=== PATIENT | female | born 1960 | race Hispanic/Latino ===

== ENCOUNTER 2018-08-21 13:13 | Emergency (ER) | payer OTHER ==
--- NOTE | 2018-08-21 15:22 | RAD REPORT ---
EXAM DESCRIPTION: Edwin Single View08/21/2018 3:13 pm CLINICAL HISTORY: Chest pain COMPARISON: none FINDINGS: Both lung bases are hazy. Upper lobes appear clear. The heart is normal size IMPRESSION: Both lung bases are hazy probably secondary to overlying soft tissue. As infiltrates can have this appearance PA and lateral chest series recommended
[2018-08-21 15:30] LABS: Absolute Monocytes 0.7 K/uL (0.1-1.3); Absolute Neutrophil 8.3 K/uL (1.8-8.0); Basophils % 0.8 % (0-1.3); Eosinophils % 1.3 % (0-4.4); Hematocrit 43.9 % (36.0-45.0); MPV 8.5 fL (7.6-11.3); Monocytes % 6.1 % (3.3-12.3)
[2018-08-21 15:35] LABS: Protime INR 1.11
[2018-08-21 15:49] LABS: ALT/SGPT 25 U/L (12-78); AST/SGOT 14 U/L (15-37); Albumin 3.7 g/dL (3.4-5.0); Alkaline Phosphatase 94 U/L (45-117); BUN Blood Urea Nitrogen 11 mg/dL (7-18); Bicarbonate 25 mmol/L (21-32); Bilirubin Total 0.2 mg/dL (0.2-1.0); Glucose Level 89 mg/dL (74-106); Lipase 145 U/L (73-393); NT PRO-BNP 69 pg/mL (<125); Potassium 3.8 mmol/L (3.5-5.1); Protein, Total 8.4 g/dL (6.4-8.2); Sodium Level 142 mmol/L (136-145); Troponin (Emerg Dept Use Only) < 0.02 ng/mL (0.0-0.045)
[2018-08-21 16:30] LABS: Urine Blood 2+ (NEG); Urine Glucose NEGATIVE (NEG); Urine Protein NEGATIVE (NEG); Urine pH 5.5 (5.0-7.0)
--- NOTE | 2018-08-21 17:15 | EKG ---
Test Date: 2018-08-21 Test Time: 13:42:24 Jewelry Department Supervisor: YADIRA MEASUREMENT RESULTS: Intervals: Rate: 93 CA: 118 QRSD: 78 QT: 342 QTc: 425 [place]: P: 51 CA: 118 QRS: 74 T: 50 INTERPRETIVE STATEMENTS: Normal sinus rhythm ST abnormality, possible digitalis effect Abnormal ECG No previous ECG available for comparison Electronically Signed On 08-21-18 17:13:40 CDT by Felix Shannon
--- NOTE | 2018-08-21 17:40 | RAD REPORT ---
EXAM DESCRIPTION: CT - Abdomen Pelvis W Contrast - 08/21/2018 5:15 pm CLINICAL HISTORY: Abdominal pain/right lower quadrant pain COMPARISON: none. TECHNIQUE: Computed axial tomography of the abdomen pelvis was obtained. 100 cc Isovue-300 was admin istered intravenously. Oral contrast was not requested which limits evaluation of bowel. All CT scans are performed using dose optimization technique as appropriate and may include automated exposure control or mA/KV adjustment according to patient size. FINDINGS: The liver, spleen, pancreas, adrenal and kidneys appear unremarkable. The appendix is normal. Diverticula stem from the colon. Mild to moderate stranding is present adjacent to the sigmoid colon. Sigmoid wall is thickened IMPRESSION: These findings most likely represent mild to moderate sigmoid diverticulitis
--- NOTE | 2018-08-21 18:03 | ER ---
Nurse's Notes [facility] Name: Netta Camargo Age: 58 yrs Sex: Female : 1960 Arrival Date: 08/21/2018 Time: 13:14 Bed 24 Private MD: Diagnosis: Sigmoid diverticulitis Presentation: 08/21 13:34 Presenting complaint: Patient states: 3 weeks ago, i started feeling pain in my abdomen hj (suprapubic area that radiates to the lower back); reports nausea, and occasional vomiting; denies diarrhea and constipation; reports on and off fever; reports chest pain;. Transition of care: patient was not received from another setting of care. Onset of symptoms was August 21, 2018. Risk Assessment: Do you want to hurt yourself or someone else? Patient reports no desire to harm self or others. Initial Sepsis Screen: Does the patient meet any 2 criteria? No. Patient's initial sepsis screen is negative. Does the patient have a suspected source of infection? No. Patient's initial sepsis screen is negative. Care prior to arrival: None. 13:34 Method Of Arrival: Ambulatory 13:34 Acuity: RACHID 3 hj Triage Assessment: 13:37 General: Appears in no apparent distress. uncomfortable, Behavior is cooperative, hj appropriate for age, anxious. Pain: Complains of pain in abdomen. Musculoskeletal: Circulation, motion, and sensation intact. Historical: - Allergies: 13:37 No Known Allergies; hj - Home Meds: 13:37 None [Active]; hj - PMHx: 13:37 None; hj - PSHx: 13:37 Knee surgery; ; hj - Immunization history:: Adult Immunizations not up to date. - Social history:: Smoking status: Patient uses tobacco products, Patient/guardian denies using alcohol. - Ebola Screening: : Patient negative for fever greater than or equal to 101.5 degrees Fahrenheit, and additional compatible Ebola Virus Disease symptoms Patient denies exposure to infectious person Patient denies travel to an Ebola-affected area in the 21 days before illness onset. Screenin:38 Abuse screen: Denies threats or abuse. Denies injuries from another. Nutritional hj screening: No deficits noted. Tuberculosis screening: No symptoms or risk factors identified. Fall Risk None identified. Assessment: 15:30 General: Appears in no apparent distress. comfortable, Behavior is calm, cooperative, aj1 appropriate for age. Pain: Complains of pain in suprapubic area Pain radiates to low back area. Neuro: Level of Consciousness is awake, alert, obeys commands, Oriented to person, place, time, situation. Cardiovascular: Reports chest pain, when her suprapubic pain becomes severe Patient's skin is warm and dry. Rhythm is sinus rhythm. Respiratory: Airway is patent Respiratory effort is even, unlabored, Respiratory pattern is regular, symmetrical. GI: Abdomen is non-distended. : No signs and/or symptoms were reported regarding the genitourinary system. EENT: No signs and/or symptoms were reported regarding the EENT system. Derm: No signs and/or symptoms reported regarding the dermatologic system. Skin is pink, warm \T\ dry. normal. Musculoskeletal: No signs and/or symptoms reported regarding the musculoskeletal system. Circulation, motion, and sensation intact. 16:36 Reassessment: Patient appears in no apparent distress at this time. No changes from aj1 previously documented assessment. Patient and/or family updated on plan of care and expected duration. Pain level reassessed. Patient is alert, oriented x 3, equal unlabored respirations, skin warm/dry/pink. 17:30 Reassessment: Patient appears in no apparent distress at this time. No changes from aj1 previously documented assessment. Patient and/or family updated on plan of care and expected duration. Pain level reassessed. Patient is alert, oriented x 3, equal unlabored respirations, skin warm/dry/pink. 18:30 Reassessment: Patient appears in no apparent distress at this time. No changes from aj1 previously documented assessment. Patient and/or family updated on plan of care and expected duration. Pain level reassessed. Patient is alert, oriented x 3, equal unlabored respirations, skin warm/dry/pink. Vital Signs: 13:38 BP 175 / 88; Pulse 96; Resp 18; Temp 97.2(O); Pulse Ox 100% on R/A; Weight 81.65 kg; hj Height 5 ft. 5 in. (165.10 cm); Pain 7/10; 15:59 BP 132 / 69; Pulse 87; Resp 18; Pulse Ox 99% on R/A; mg2 18:49 BP 135 / 75; Pulse 88; Resp 18; Pulse Ox 99% on R/A; aj1 13:38 Body Mass Index 29.95 (81.65 kg, 165.10 cm) ED Course: 13:14 Patient arrived in ED. rg4 13:37 Triage completed. hj 13:38 Arm band placed on left wrist. hj 13:38 Patient has correct armband on for positive identification. Placed in gown. Bed in low hj position. Call light in reach. Side rails up X 1. Adult w/ patient. 13:53 EKG done, by database technician. reviewed by Hubert Hightower MD. at1 14:52 Alex Torres MD is Attending Physician. ps1 14:53 Bridgett Eubanks, RN is Primary Nurse. aj1 15:11 XRAY Chest (1 view) In Process Unspecified. EDMS 15:25 No provider procedures requiring assistance completed. Inserted saline lock: 22 gauge mg2 in right antecubital area, using aseptic technique. Blood collected. 17:15 CT Abd/Pelvis - W/Contrast In Process Unspecified. EDMS 18:48 IV discontinued, intact, bleeding controlled, No redness/swelling at site. Pressure aj1 dressing applied. Administered Medications: 18:47 Drug: morphine 4 mg Route: IVP; Site: right antecubital; aj1 18:47 Follow up: Response: No adverse reaction aj1 18:47 Drug: Zofran 4 mg Route: IVP; Site: right antecubital; aj1 18:48 Follow up: Response: No adverse reaction aj1 Outcome: 18:01 Discharge ordered by MD. ps1 18:49 Patient left the ED. aj1 Signatures: Dispatcher [employer] EDMS Bridgett Eubanks, RN RN aj1 Mera Short, turn machine operator EKG Tat1 Peter Galan RN RN hj Garcia, Rubi rg4 Alex Torres MD MD ps1 Sandeep Vega RN RN mg2 Corrections: (The following items were deleted from the chart) 13:41 13:34 Presenting complaint: Patient states: 3 weeks ago, i started feeling pain in my hj abdomen; reports nausea, and occasional vomiting; denies diarrhea and constipation; reports on and off fever; reports chest pain; hj 13:41 13:38 Pulse 96bpm; Resp 18bpm; Pulse Ox 100% RA; Temp 97.2F Oral; 81.65 kg; Height 5 hj ft. 5 in.; BMI: 29.9; Pain 7/10; hj
--- NOTE | 2018-08-21 18:03 | EDPHYS ---
Physician Documentation [facility] Name: Netta Camargo Age: 58 yrs Sex: Female : 1960 Arrival Date: 08/21/2018 Time: 13:14 Bed 24 Private MD: ED Physician Alex Torres HPI: 08/21 17:54 This 58 yrs old Female presents to ER via Ambulatory with complaints of Back ps1 Pain, Chest Pain, Abdominal Pain. 17:54 patient states that she has RLQ abdominal . ps1 Historical: - Allergies: 13:37 No Known Allergies; hj - Home Meds: 13:37 None [Active]; hj - PMHx: 13:37 None; hj - PSHx: 13:37 Knee surgery; ; hj - Immunization history:: Adult Immunizations not up to date. - Social history:: Smoking status: Patient uses tobacco products, Patient/guardian denies using alcohol. - Ebola Screening: : Patient negative for fever greater than or equal to 101.5 degrees Fahrenheit, and additional compatible Ebola Virus Disease symptoms Patient denies exposure to infectious person Patient denies travel to an Ebola-affected area in the 21 days before illness onset. Vital Signs: 13:38 BP 175 / 88; Pulse 96; Resp 18; Temp 97.2(O); Pulse Ox 100% on R/A; Weight 81.65 kg; hj Height 5 ft. 5 in. (165.10 cm); Pain 7/10; 15:59 BP 132 / 69; Pulse 87; Resp 18; Pulse Ox 99% on R/A; mg2 18:49 BP 135 / 75; Pulse 88; Resp 18; Pulse Ox 99% on R/A; aj1 13:38 Body Mass Index 29.95 (81.65 kg, 165.10 cm) hj MDM: 14:55 Patient medically screened. ps1 08/21 14:54 Order name: CBC with Diff ps1 08/21 14:54 Order name: Magnesium; Complete Time: 16:16 ps1 08/21 14:54 Order name: NT PRO-BNP; Complete Time: 16:16 ps1 08/21 14:54 Order name: PT-INR; Complete Time: 16:16 ps1 08/21 14:54 Order name: Troponin (emerg Dept Use Only); Complete Time: 16:16 ps1 08/21 14:54 Order name: CMP; Complete Time: 16:16 ps1 08/21 13:41 Order name: EKG; Complete Time: 13:42 hj 08/21 14:54 Order name: XRAY Chest (1 view); Complete Time: 16:16 ps1 08/21 14:54 Order name: Lipase; Complete Time: 16:16 ps1 08/21 14:55 Order name: CBC with Automated Diff; Complete Time: 16:16 EDMS 08/21 15:26 Order name: Urine Dipstick--Ancillary (enter results); Complete Time: 16:33 bd 08/21 16:44 Order name: CT Abd/Pelvis - W/Contrast; Complete Time: 17:44 ps1 08/21 14:54 Order name: EKG; Complete Time: 14:55 ps1 08/21 14:54 Order name: Cardiac monitoring; Complete Time: 15:25 ps1 08/21 14:54 Order name: EKG - Nurse/Tech; Complete Time: 15:07 ps1 08/21 14:54 Order name: IV Saline Lock; Complete Time: 15:25 ps1 08/21 14:54 Order name: Labs collected and sent; Complete Time: 15:25 ps1 08/21 14:54 Order name: O2 Per Protocol; Complete Time: 15:25 ps1 08/21 14:54 Order name: O2 Sat Monitoring; Complete Time: 15:25 ps1 08/21 14:54 Order name: Urine Dipstick-Ancillary (obtain specimen); Complete Time: 15:07 ps1 Administered Medications: 18:47 Drug: morphine 4 mg Route: IVP; Site: right antecubital; aj1 18:47 Follow up: Response: No adverse reaction aj1 18:47 Drug: Zofran 4 mg Route: IVP; Site: right antecubital; aj1 18:48 Follow up: Response: No adverse reaction aj1 Disposition: 08/21/18 18:01 Discharged to Home. Impression: Sigmoid diverticulitis. - Condition is Stable. - Discharge Instructions: Diverticulitis. - Prescriptions for Cipro 500 mg Oral Tablet - take 1 tablet by ORAL route every 12 hours for 10 days; 20 tablet. Flagyl 500 mg Oral Tablet - take 1 tablet by ORAL route every 6 hours for 10 days; 40 tablet. Tylenol- Codeine #3 300-30 mg Oral Tablet - take 2 tablet by ORAL route every 6 hours As needed; 30 tablet. Zofran 4 mg Oral Tablet - take 1 tablet by ORAL route every 12 hours As needed; 20 tablet. - Medication Reconciliation Form, Thank You Letter, Antibiotic Education, Prescription Opioid Use form. - Follow up: Private Physician; When: 48 Hours; Reason: Recheck today's complaints. Follow up: Emergency Department; When: As needed; Reason: Fever > 102 F, If symptoms return, Worsening of condition. - Problem is new. - Symptoms are unchanged. Signatures: Dispatcher [employer] EDBridgett Marcelo RN RN aj1 Peter Galan RN RN hj Alex Torres MD MD ps1 Corrections: (The following items were deleted from the chart) 18:49 18:01 08/21/2018 18:01 Discharged to Home. Impression: Sigmoid diverticulitis. aj1 Condition is Stable. Forms are Medication Reconciliation Form, Thank You Letter, Antibiotic Education, Prescription Opioid Use. Follow up: Private Physician; When: 48 Hours; Reason: Recheck today's complaints. Follow up: Emergency Department; When: As needed; Reason: Fever > 102 F, If symptoms return, Worsening of condition. Problem is new. Symptoms are unchanged. ps1
[2018-08-21] MEDS ORDERED: MORPHINE 4 MG/ML SYR ONE (18:46)
[2018-08-21] MEDS ORDERED: ONDANSETRON 4 MG/2 ML VIAL ONE (18:46)
== END 2018-08-21 18:49 | disposition home or self-care (01) ==
LOC: ER 13:13
DX: K57.32 Diverticulitis of large intestine without perforation or abscess without bleeding (principal); Z72.0 Tobacco use
CPT/HCPCS: 36415; 71045; 74177; 80053; 81003; 83690; 83735; 83880; 84484; 85025; 85610; 93005; 96374; 96375; 99284; J2405; Q9967

== ENCOUNTER 2019-03-03 09:38 | Emergency (ER) | payer OTHER ==
[2019-03-03] MEDS ORDERED: KETOROLAC 30 MG/ML INJ ONE (10:41)
[2019-03-03] MEDS ORDERED: dexAMETHasone 10 MG/ML VIAL ONE (10:41)
--- NOTE | 2019-03-03 11:40 | ER ---
Nurse's Notes [facility] Name: Netta Camargo Age: 58 yrs Sex: Female : 1960 Arrival Date: 03/03/2019 Time: 09:46 Bed 8 Private MD: Diagnosis: Pain in left shoulder;Myalgia Presentation: 03/03 09:54 Presenting complaint: Left arm pain that radiates to left upper back and left side of hb neck x 1 week. Transition of care: patient was not received from another setting of care. 09:54 Method Of Arrival: Ambulatory hb 09:55 Onset of symptoms was February 24, 2019. Risk Assessment: Do you want to hurt yourself hb or someone else? Patient reports no desire to harm self or others. Initial Sepsis Screen: Does the patient meet any 2 criteria? No. Patient's initial sepsis screen is negative. Does the patient have a suspected source of infection? No. Patient's initial sepsis screen is negative. Care prior to arrival: None. 09:55 Acuity: RACHID 4 hb Historical: - Allergies: 09:56 No Known Allergies; hb - PSHx: 09:56 Knee surgery; ; hb - Immunization history:: Adult Immunizations up to date. - Social history:: Smoking status: Patient uses tobacco products, smokes one pack cigarettes per day. - Ebola Screening: : No symptoms or risks identified at this time. Screenin:57 Abuse screen: Denies threats or abuse. Denies injuries from another. Nutritional hb screening: No deficits noted. Tuberculosis screening: No symptoms or risk factors identified. Fall Risk None identified. Assessment: 09:50 General: Appears in no apparent distress. uncomfortable, well groomed, Behavior is ae4 calm, cooperative. Pain: Complains of pain in left arm Pain radiates to left posterior aspect of neck and left lateral aspect of neck Pain currently is 8 out of 10 on a pain scale. Neuro: Level of Consciousness is awake, alert, obeys commands, Oriented to person, place, time, situation, Appropriate for age. Cardiovascular: Denies chest pain, lightheadedness, nausea, shortness of breath, Heart tones S1 S2 present Patient's skin is warm and dry. Rhythm is regular. Respiratory: Airway is patent Respiratory effort is even, unlabored, Respiratory pattern is regular, symmetrical, Breath sounds are clear bilaterally. GI: Abdomen is round non-distended, Patient currently denies abdominal pain. : No signs and/or symptoms were reported regarding the genitourinary system. EENT: No signs and/or symptoms were reported regarding the EENT system. Derm: Skin is pink, warm \T\ dry. Musculoskeletal: Reports pain in left arm. Injury Description: Patient denies injury. Vital Signs: 09:54 BP 157 / 90; Pulse 76; Resp 16; Temp 97.8(TE); Pulse Ox 100% on R/A; Weight 81.65 kg; hb Height 5 ft. 5 in. (165.10 cm); Pain 8/10; 11:02 BP 132 / 84; Pulse 63; Resp 18; Pulse Ox 97% ; ae4 09:54 Body Mass Index 29.95 (81.65 kg, 165.10 cm) hb ED Course: 09:46 Patient arrived in ED. as 09:51 Noman Rosenbaum RN is Primary Nurse. ae4 09:52 Jose Luis Sellers PA is PHCP. jr8 09:52 Laurent Jackson MD is Attending Physician. jr8 09:56 Arm band placed on. hb 09:58 Triage completed. hb 10:51 Missed attempt(s): 22 gauge in right hand. Bleeding controlled, band aid applied, aa5 catheter tip intact. 10:53 Inserted saline lock: 22 gauge in right antecubital area, using aseptic technique. aa5 11:01 Patient has correct armband on for positive identification. Placed in gown. Bed in low ae4 position. Call light in reach. Side rails up X 1. Adult w/ patient. Pulse ox on. NIBP on. 11:53 No provider procedures requiring assistance completed. intact, bleeding controlled, No ae4 redness/swelling at site. Pressure dressing applied. Administered Medications: 10:54 Drug: TORadol - Ketorolac 15 mg Route: IVP; Site: right antecubital; aa5 11:54 Follow up: Response: Pain is decreased ae4 10:55 Drug: Decadron - Dexamethasone 10 mg Route: IVP; Site: right antecubital; aa5 11:54 Follow up: Response: Pain is decreased ae4 Outcome: 11:39 Discharge ordered by . jr8 11:53 Discharged to home ambulatory, with significant other. ae4 11:53 Condition: stable 11:53 Discharge instructions given to patient, Instructed on discharge instructions, follow up and referral plans. medication usage, Demonstrated understanding of instructions, Prescriptions given X 1. 11:54 Patient left the ED. ae4 Signatures: Kinjal Singh Audri, RN RN aa5 Jose Luis Sellers PA PA jr8 Kelly Null, RN RN Noman Rosenbaum RN RN ae4
--- NOTE | 2019-03-03 11:40 | EDPHYS ---
Physician Documentation [facility] Name: Netta Camargo Age: 58 yrs Sex: Female : 1960 Arrival Date: 03/03/2019 Time: 09:46 Bed 8 Private MD: ED Physician Laurent Jackson HPI: 03/03 10:42 This 58 yrs old Female presents to ER via Ambulatory with complaints of Arm jr8 Pain, Neck Pain, >24Hrs Old. 10:42 The patient or guardian complains of pain, that is acute. The complaints affect the jr8 posterior aspect of left shoulder. Treatment prior to arrival includes: over the counter medications, NSAIDS, Tylenol. Modifying factors: the symptoms are aggravated by Palpation of left trapezius area. Severity of symptoms: At their worst the symptoms were moderate, in the emergency department the symptoms are unchanged. The patient has not experienced similar symptoms in the past. Pt states left shoulder and arm pain for the last week, report helping taking care of her grandfather with lifting and moving a few weeks ago. . Historical: - Allergies: 09:56 No Known Allergies; hb - PSHx: 09:56 Knee surgery; ; hb - Immunization history:: Adult Immunizations up to date. - Social history:: Smoking status: Patient uses tobacco products, smokes one pack cigarettes per day. - Ebola Screening: : No symptoms or risks identified at this time. ROS: 10:42 Constitutional: Negative for fever, chills, and weight loss, Eyes: Negative for injury, jr8 pain, redness, and discharge, ENT: Negative for injury, pain, and discharge, Neck: Negative for injury, pain, and swelling, Cardiovascular: Negative for chest pain, palpitations, and edema, Respiratory: Negative for shortness of breath, cough, wheezing, and pleuritic chest pain, Abdomen/GI: Negative for abdominal pain, nausea, vomiting, diarrhea, and constipation, Back: Negative for injury and pain, Skin: Negative for injury, rash, and discoloration, Neuro: Negative for headache, weakness, numbness, tingling, and seizure. 10:42 MS/extremity: Positive for pain, of the posterior aspect of left shoulder. Exam: 10:42 Constitutional: This is a well developed, well nourished patient who is awake, alert, jr8 and in no acute distress. Head/Face: Normocephalic, atraumatic. Eyes: Pupils equal round and reactive to light, extra-ocular motions intact. Lids and lashes normal. Conjunctiva and sclera are non-icteric and not injected. Cornea within normal limits. Periorbital areas with no swelling, redness, or edema. ENT: Nares patent. No nasal discharge, no septal abnormalities noted. Tympanic membranes are normal and external auditory canals are clear. Oropharynx with no redness, swelling, or masses, exudates, or evidence of obstruction, uvula midline. Mucous membranes moist. Neck: Trachea midline, no thyromegaly or masses palpated, and no cervical lymphadenopathy. Supple, full range of motion without nuchal rigidity, or vertebral point tenderness. No Meningismus. Chest/axilla: Normal chest wall appearance and motion. Nontender with no deformity. No lesions are appreciated. Cardiovascular: Regular rate and rhythm with a normal S1 and S2. No gallops, murmurs, or rubs. Normal PMI, no JVD. No pulse deficits. Respiratory: Lungs have equal breath sounds bilaterally, clear to auscultation and percussion. No rales, rhonchi or wheezes noted. No increased work of breathing, no retractions or nasal flaring. Abdomen/GI: Soft, non-tender, with normal bowel sounds. No distension or tympany. No guarding or rebound. No evidence of tenderness throughout. Back: No spinal tenderness. No costovertebral tenderness. Full range of motion. Skin: Warm, dry with normal turgor. Normal color with no rashes, no lesions, and no evidence of cellulitis. 10:42 Musculoskeletal/extremity: Extremities: noted in the left trapezius: pain, tenderness, palpation of left trapezius exacerbates and reproduces pain in left arm. Vital Signs: 09:54 BP 157 / 90; Pulse 76; Resp 16; Temp 97.8(TE); Pulse Ox 100% on R/A; Weight 81.65 kg; hb Height 5 ft. 5 in. (165.10 cm); Pain 8/10; 11:02 BP 132 / 84; Pulse 63; Resp 18; Pulse Ox 97% ; ae4 09:54 Body Mass Index 29.95 (81.65 kg, 165.10 cm) hb MDM: 09:52 Patient medically screened. jr8 11:36 Data reviewed: vital signs, nurses notes, EKG, and as a result, I will discharge jr8 patient. Data interpreted: Pulse oximetry: on room air is 97 %. Interpretation: normal. Counseling: I had a detailed discussion with the patient and/or guardian regarding: the historical points, exam findings, and any diagnostic results supporting the discharge/admit diagnosis, the need for outpatient follow up, a orthopedic surgeon. Response to treatment: the patient's symptoms have mildly improved after treatment. ED course: Pain is mildly relived by toradol and decadron. Discussed return precautions and need for FU with ortho is sx perisist. 03/03 10:19 Order name: EKG; Complete Time: 10:20 8 03/03 10: Order name: EKG - Nurse/Tech; Complete Time: :58 8 03/03 10:20 Order name: IV; Complete Time: 10:58 8 Administered Medications: 10:54 Drug: TORadol - Ketorolac 15 mg Route: IVP; Site: right antecubital; aa5 11:54 Follow up: Response: Pain is decreased ae4 10:55 Drug: Decadron - Dexamethasone 10 mg Route: IVP; Site: right antecubital; aa5 11:54 Follow up: Response: Pain is decreased ae4 Disposition: 12:16 Co-signature as Attending Physician, Laurent Jackson MD. rn Disposition: 03/03/19 11:39 Discharged to Home. Impression: Pain in left shoulder, Myalgia. - Condition is Stable. - Discharge Instructions: Muscle Strain, Muscle Pain, Adult. - Prescriptions for meloxicam 15 mg Oral tablet - take 1 tablet by ORAL route once daily; 12 tablet. - Medication Reconciliation Form, Thank You Letter form. - Follow up: Private Physician; When: As needed; Reason: Recheck today's complaints, Re-evaluation by your physician. - Problem is new. - Symptoms have improved. Signatures: Laurent Jackson MD MD rn Calderon, Audri RN RN aa5 Jose Luis Sellers PA PA jr8 Kelly Null RN RN Noman Rosenbaum RN RN ae4 Corrections: (The following items were deleted from the chart) 11:54 11:39 03/03/2019 11:39 Discharged to Home. Impression: Pain in left shoulder; Myalgia. ae4 Condition is Stable. Forms are Medication Reconciliation Form, Thank You Letter, Antibiotic Education, Prescription Opioid Use. Follow up: Private Physician; When: As needed; Reason: Recheck today's complaints, Re-evaluation by your physician. Problem is new. Symptoms have improved. jr8
[2019-03-03 12:02] VITALS: TEMP 97.8
[2019-03-03 12:03] VITALS: BP 132/84; O2SAT 97
--- NOTE | 2019-03-04 09:49 | EKG ---
Test Date: 2019-03-03 Test Time: 10:54:07 Remote Sensing Advisor: PRASHANTH MEASUREMENT RESULTS: Intervals: Rate: 61 MA: 118 QRSD: 76 QT: 394 QTc: 396 [place]: P: 32 MA: 118 QRS: 20 T: 33 INTERPRETIVE STATEMENTS: Normal sinus rhythm Septal infarct, age undetermined Abnormal ECG Compared to ECG 08/21/2018 13:42:24 Myocardial infarct finding now present ST (T wave) deviation no longer present Electronically Signed On 03-04-19 09:48:50 CDT by Felix Shannon
== END 2019-03-03 11:54 | disposition home or self-care (01) ==
LOC: ER 09:38
DX: M25.512 Pain in left shoulder (principal); M79.18 Myalgia, other site; F17.210 Nicotine dependence, cigarettes, uncomplicated
CPT/HCPCS: 93005; 96375; 96374; 99284; J1100